=== PATIENT | male | born 1980 | race Hispanic/Latino ===

== ENCOUNTER 2017-04-25 00:27 | Emergency (ER) | payer OTHER ==
[~2017-04-25] VITALS: Ht 162.6 cm; Wt 108.9 kg
[~2017-04-25 00:27] MED LIST: PRINIVIL10 MG PO
[2017-04-25 01:28] LABS: BASOPHILS % 0.2 % (0.0-1.0); EOSINOPHILS # (AUTO) 0.3 (0.0-0.4); EOSINOPHILS % 2.9 % (0.0-6.0); HEMATOCRIT 42.5 % (38.2-49.6); HEMOGLOBIN 14.5 g/dL (14.0-18.0); LYMPHOCYTES # (AUTO) 3.5 (1.0-3.2); LYMPHOCYTES % 39.6 % (18.0-39.1); MEAN CORPUSCULAR HEMOGLOBIN 31.1 pg (28-32); MEAN CORPUSCULAR HGB CONC 34.1 g/dL (31-35); MEAN CORPUSCULAR VOLUME 91.2 fL (81-99); MONOCYTES # (AUTO) 0.7 (0.2-0.8); MONOCYTES % 7.5 % (4.4-11.3); NEUTROPHILS # (AUTO) 4.4 (2.1-6.9); NEUTROPHILS % 49.6 % (38.7-80.0); PLATELET COUNT 235 x10e3/uL (140-360); RED BLOOD COUNT 4.66 x10e6/uL (4.3-5.7); RED CELL DISTRIBUTION WIDTH 13.2 % (11.7-14.4)
[2017-04-25 01:48] LABS: ALANINE AMINOTRANSFERASE 28 IU/L (0-55); ALBUMIN 3.9 g/dL (3.5-5.0); ALKALINE PHOSPHATASE 129 IU/L (40-150); ANION GAP 12.1 mmol/L (8-16); BLOOD UREA NITROGEN 13 mg/dL (7-26); BUN/CREATININE RATIO 15 (6-25); CALCIUM 9.1 mg/dL (8.4-10.2); CARBON DIOXIDE 25 mmol/L (22-29); CHLORIDE 106 mmol/L (98-107); CREATINE KINASE 68 IU/L (30-200); CREATININE, SERUM 0.88 mg/dL (0.72-1.25); EST GLOMERULAR FILTRATION RATE > 60 ML/MIN (60-); GLUCOSE 132 mg/dL (74-118); POTASSIUM 4.1 mmol/L (3.5-5.1); SODIUM 139 mmol/L (136-145)
--- NOTE | 2017-04-25 02:10 | Diagnostic Imaging Report ---
CHEST SINGLE (PORTABLE), 04/25/2017 12:57 AM Technique: CHEST SINGLE (PORTABLE) Comparison: None available. Clinical history: Chest pain Findings: See Impression Impression: 1. Mildly enlarged cardiac silhouette, likely accentuated by portable technique. 2. No edema or consolidation. 3. No effusion or pneumothorax. Signed by: Dr Ary Montes MD on 04/25/2017 2:07 AM
[2017-04-25 04:11] LABS: CREATINE KINASE 61 IU/L (30-200)
[2017-04-25 04:26] VITALS: BP 154/89
== END 2017-04-25 04:27 | disposition home or self-care (01) ==
LOC: ER 00:27
DX: R07.89 Other chest pain (principal); R06.00 Dyspnea, unspecified; I10 Essential (primary) hypertension
CPT/HCPCS: 36415; 71045; 80053; 82550; 82553; 84484; 85025; 85379; 93005; 99284

== ENCOUNTER 2019-12-31 14:12 | Emergency (ER) | payer OTHER ==
[~2019-12-31] VITALS: Ht 162.6 cm; Wt 108.9 kg
[2019-12-31 15:04] LABS: BASOPHILS % 0.4 % (0.0-1.0); EOSINOPHILS # (AUTO) 0.2 (0.0-0.4); HEMATOCRIT 43.3 % (38.2-49.6); HEMOGLOBIN 14.8 g/dL (14.0-18.0); LYMPHOCYTES # (AUTO) 2.8 (1.0-3.2); LYMPHOCYTES % 28.1 % (18.0-39.1); MEAN CORPUSCULAR HEMOGLOBIN 30.6 pg (28-32); MEAN CORPUSCULAR HGB CONC 34.2 g/dL (31-35); MEAN CORPUSCULAR VOLUME 89.5 fL (81-99); MONOCYTES # (AUTO) 0.6 (0.2-0.8); MONOCYTES % 5.8 % (4.4-11.3); NEUTROPHILS # (AUTO) 6.2 (2.1-6.9); PLATELET COUNT 280 x10e3/uL (140-360); RED BLOOD COUNT 4.84 x10e6/uL (4.3-5.7); RED CELL DISTRIBUTION WIDTH 13.4 % (11.7-14.4)
[2019-12-31 15:12] LABS: BILIRUBIN,URINE NEGATIVE (NEGATIVE); CLARITY,URINE SL CLOUDY (CLEAR); COLOR,URINE YELLOW (YELLOW); KETONES,URINE TRACE (NEGATIVE); LEUKOCYTE ESTERASE ,URINE NEGATIVE (NEGATIVE); NITRITE,URINE NEGATIVE (NEGATIVE); PROTEIN,URINE DIPSTICK NEGATIVE (NEGATIVE); URINE UROBILINOGEN 0.2 mg/dL (0.2 - 1)
[2019-12-31 15:22] LABS: ALANINE AMINOTRANSFERASE 45 IU/L (0-55); ALBUMIN 3.8 g/dL (3.5-5.0); ALKALINE PHOSPHATASE 131 IU/L (40-150); ANION GAP 14.4 mmol/L (8-16); BLOOD UREA NITROGEN 12 mg/dL (7-26); BUN/CREATININE RATIO 12 (6-25); CALCIUM 9.2 mg/dL (8.4-10.2); CARBON DIOXIDE 25 mmol/L (22-29); CHLORIDE 103 mmol/L (98-107); CREATININE, SERUM 1.04 mg/dL (0.72-1.25); EST GLOMERULAR FILTRATION RATE > 60 ML/MIN (60-); GLUCOSE 233 mg/dL (74-118); POTASSIUM 3.4 mmol/L (3.5-5.1); SODIUM 139 mmol/L (136-145)
[2019-12-31 15:28] LABS: BACTERIA,URINE FEW /HPF; MUCUS,URINE MODERATE (RARE); RBC,URINE 0-5 /HPF (0-5)
--- NOTE | 2019-12-31 17:20 | Diagnostic Imaging Report ---
EXAM: CT Abdomen and Pelvis WITH contrast INDICATION: Flank pain concerning for obstructive uropathy COMPARISON: None. TECHNIQUE: Abdomen and pelvis were scanned utilizing a multidetector helical scanner from the lung base to the pubic symphysis after administration of IV contrast. Coronal and sagittal reformations were obtained. Routine protocol was performed. Scan was performed when during portal venous phase. IV CONTRAST: 100 mL of Isovue 370 ORAL CONTRAST: None COMPLICATIONS: None RADIATION DOSE: Total DLP: 888 mGy*cm Estimated effective dose: (DLP x 0.015 x size factor) mSv CTDIvol has been reviewed. It is below the limits set by the Radiation Protocol Committee (RPC). Dose modulation, iterative reconstruction, and/or weight based adjustment of the mA/kV was utilized to reduce the radiation dose to as low as reasonably achievable. FINDINGS: LINES and TUBES: None. LOWER THORAX: Unremarkable HEPATOBILIARY: The liver is diffuse hypodense compared to the spleen, consistent with diffuse hepatic diffuse hepatic steatosis. No focal hepatic lesions. No biliary ductal dilation. GALLBLADDER: No radio-opaque stones or sludge. No wall thickening. SPLEEN: No splenomegaly. PANCREAS: No focal masses or ductal dilatation. ADRENALS: No adrenal nodules KIDNEYS/URETERS: Kidneys enhance symmetrically. No hydronephrosis. No cystic or solid mass lesions. No stones. GI TRACT: No abnormal distention, wall thickening, or evidence of bowel obstruction. Appendix is normal. PELVIC ORGANS/BLADDER: Unremarkable. LYMPH NODES: No lymphadenopathy. VESSELS: Unremarkable. PERITONEUM / RETROPERITONEUM: No free air or fluid. BONES: Unremarkable. SOFT TISSUES: Unremarkable. IMPRESSION: 1. No obstructive renal or ureteral stones. No acute abdominopelvic abnormality identified. 2. Hepatic steatosis. Signed by: Shyla Matamoros MD on 12/31/2019 5:17 PM
[2019-12-31] MEDS ORDERED: SODIUM CHLORIDE 0.9% 1000ML 1,000 ML IV STA (17:25)
[2019-12-31] MEDS ORDERED: KETOROLAC TROMETHAMINE 30 MG/ML VIAL IV STA (17:25)
[2019-12-31] MEDS ORDERED: CLONIDINE HCL 0.2 MG TAB PO ONE (18:00)
[2019-12-31] MEDS ORDERED: HYDROCHLOROTHIA25 MG PO (18:38)
[2019-12-31] MEDS ORDERED: METOPROLOL TARTRATE INJ 1 MG/ML VIAL IV ONE (18:45)
[2019-12-31] MEDS ORDERED: IOPAMIDOL 370 MG/ML 200 ML INFUS..BTL INJ ONE (19:05)
[2019-12-31] MEDS ORDERED: SODIUM CHLORIDE 0.9% 50ML 50 ML ONE (19:05)
--- OUTSIDE RECORDS SUMMARY | 2020-01-13 16:07 | XMS REPORT | Continuity of Care Document ---
Author Author [facility] Organization [facility] Address [address] [place] [address] [address] [place] [address] Phone Unavailable Care Team Providers Care Dust Box Tender Name Role Phone PORFIRIO ESTEVEZ DO PCP Charlie THORNE Attphys Unavailable Louie CAO Attphys Unavailable Payers Payer Name Policy Type Policy Number Effective Date Expiration Date Charlie Alcaraz o [id number] 2013 00:00:00 [facility] Problems Condition Name Condition Details Condition Category Status Onset Date Resolution Date Last Treatment Date Treating Clinician Comments Source Calculus of kidney Kidney stone Problem Active [facility] Allergies, Adverse Reactions, Alerts Allergy Name Allergy Type Status Severity Reaction(s) Onset Date Inacti ve Date Treating Clinician Comments Source Tamsulosin Allergy to Substance Active Moderate ANXIETY ITCHING 2014-04-23 00:00:00 [facility] Medications Ordered Medication Name Filled Medication Name Start Date Stop Da te Current Medication? Ordering Clinician Indication Dosage Frequency Signature (SIG) Comments Components Source Lisinopril (Prinivil) 10 Mg Tablet Lisinopril (Prinivil) 10 Mg Tablet Yes 10 Daily [facility] Procedures This patient has no known procedures. Encounters Start Date/Time End Date/Time Encounter Type Admission Type [facility] Care Department Encounter ID Source 2017-04-25 00:27:00 2017-04-25 04:27:00 Departed Emergency Room ER DEBORA CAO [facility] [id number] [facility] Results Test Description Test Time Test Comments Results Result Comments Source CT ABDOMEN/PELVIS W 2019-12-31 17:12:00 [facility] : 1980 Sex: M [facility] [address] [address] Patient Name: BEATRIZ CHOW JR MR #: [id number] : 1980 Age/Sex: 39/M Req #: [id number] Adm Physician: Ordered by: BAKARI THORNE DO Report #: [id number] Location: ER Room/Bed: Procedure: [id number] CT/CT ABDOMEN/PELVIS W Exam Date: 12/31/19 Exam Time: 1640 REPORT STATUS: Signed EXAM: CT Abdomen and Pelvis WITH contra st INDICATION: Flank pain concerning for obstructive uropathy COMPARISON: None. TECHNIQUE: Abdomen and pelvis were scanned utilizing a multidetector helical scanner from the lung base to the pubic symphysis after administration of IV contrast. Coronal and sagittal reformations were obtained. Routine protocol was performed. Scan was performed when during portal venous phase. IV CONTRAST: 100 mL of Isovue 370 ORAL CONTRAST: None COMPLICATIONS: None RADIATION DOSE: Total DLP: 888 mGy*cm Estimated effective dose: (DLP x 0.015 x size factor) mSv CTDIvol has been reviewed. It is below the limits set by the Radiation Protocol Committee (RPC). Dose modulation, iterative reconstruction, and/or weight based adjustment of the mA/kV was utilized to reduce the radiation dose to as low as reasonably achievable. FINDINGS: LINES and TUBES: None. LOWER THORAX: Unremarkable HEPATOBILIARY: The liver is diffuse hypodense compared to the spleen, consistent with diffuse hepatic diffuse hepatic steatosis. No focal hepatic lesions. No biliary ductal dilation. GALLBLADDER: No radio-opaque stones or sludge. No wall thickening. SPLEEN: No splenomegaly. PANCREAS: No focal masses or ductal dilatation. ADRENALS: No adrenal nodules KIDNEYS/URETERS: Kidneys enhance symmetrically. No hydronephrosis. No cystic or solid mass lesions. No stones. GI TRACT: No abnormal distention, wall thickening, or evidence of bowel obstruction. Appendix is normal. PELVIC ORGANS/BLADDER: Unremarkable. LYMPH NODES: No lymphadenopathy. VESSELS: Unremarkable. PERITONEUM / RETROPERITONEUM: No free air or fluid. BONES: Unremarkable. SOFT TISSUES: Unremarkable. IMPRESSION: 1. No obstructive renal or ureteral stones. No acute abdominopelvic abnormality identified. 2. Hepatic steatosis. Signed by: Yen Hernandez MD on 12/31/2019 5:17 PM Dictated By: YEN HERNANDEZ MD 16 Transcribed By: BERNA on 12/31/191716 COPY TO: BAKARI THORNE DO Creatine Kinase MB 2017-04-25 04:19:00 Test Item Creatine Kinase MB (test code = 53926-6) 0.60 0-5.0 [facility] HospitalTroponin [id number] 04:19:00* Test Item Value Reference Range Interpretation Comments Troponin I (test code = 98507-7) -0.01 0.0-0.78 [facility] HospitalCreatine [id number] 04:13:00* Test Item Value Reference Range Interpretation Comments Creatine Kinase (test code = 2157-6) 61 30-200 [facility] Cnnay0690-69-74 01:49:00* Test Item Value Reference Range Interpretation Comments Sodium Level (test code = 2951-2) 139 136-145 [facility] HospitalPotassium Ysgtm2885-15-54 01:49:00* Test Item Value Reference Range Interpretation Comments Potassium Level (test code = 2823-3) 4.1 3.5-5.1 [facility] HospitalChloride [id number] 01:49:00* Test Item Value Reference Range Interpretation Comments Chloride Level (test code = 2075-0) 106 98-107 [facility] HospitalCarbon Dioxide Tdvbo1947-98-91 01:49:00* Test Item Value Reference Range Interpretation Comments Carbon Dioxide Level (test code = 2028-9) 25 22-29 [facility] HospitalAnion Ytn3422-82-46 01:49:00* Test Item Value Reference Range Interpretation Comments Anion Gap (test code = 98756-5) 12.1 8-16 [facility] HospitalBlood Urea Ljufwxvu3522-46-06 01:49:00* Test Item Value Reference Range Interpretation Comments Blood Urea Nitrogen (test code = 3094-0) 13 7- [facility] HospitalCreatinine2018-02-16 01:49:00* Test Item Value Reference Range Interpretation Comments Creatinine (test code = 2160-0) 0.88 0.72-1.25 [facility] HospitalBUN/Creatinine Ucnyx2507-86-53 01:49:00* Test Item Value Reference Range Interpretation Comments BUN/Creatinine Ratio (test code = 3097-3) 15 6-25 [facility] HospitalEstimat Glomerular Filtration Rate 2017-04-25 01:49:00* Test Item Value Reference Range Interpretation Comments Estimat Glomerular Filtration Rate (test code = 20001-5) 60- >60 Ranges were taken from the National Kidney Disease Education Program and the [employer] literature.Reference ranges:60 or greater: Kcgmnz80-16 ( for 3 consecutive months): Chronic kidney disease 15 or less: Kidney failureSouth [facility] Spine & Surgical HospitalGlucose Gmdch3088-43-52 01:49:00* Test Item Value Reference Range Interpretation Comments Glucose Level (test code = CWR7275) 132 74-118 H [facility] HospitalCalcium Mrmax2870-76-39 01:49:00* Test Item Value Reference Range Interpretation Comments Calcium Level (test code = 66477-4) 9.1 8.4-10.2 [facility] HospitalTotal Qamudxjlu4841-70-88 01:49:00* Test Item Value Reference Range Interpretation Comments Total Bilirubin (test code = 1975-2) 0.6 0.2-1.2 [facility] HospitalAspartate Amino Transf (AST/SGOT) 2017-04-25 01:49:00* Test Item Value Reference Range Interpretation Comments Aspartate Amino Transf (AST/SGOT) (test code = Aspartate Amino Transf (AST/SGOT)) 16 5-34 [facility] HospitalAlanine Aminotransferase (ALT/SGPT) 2017-04-25 01:49:00* Test Item Value Reference Range Interpretation Comments Alanine Aminotransferase (ALT/SGPT) (test code = 1742-6) 28 0-55 [facility] HospitalTotal Jokxniy6938-33-22 01:49:00* Test Item Value Reference Range Interpretation Comments Total Protein (test code = 2885-2) 7.7 6.5-8.1 [facility] HospitalAlbumin2018-02-16 01:49:00* Test Item Value Reference Range Interpretation Comments Albumin (test code = 1751-7) 3.9 3.5-5.0 [facility] HospitalGlobulin2018-02-16 01:49:00* Test Item Value Reference Range Interpretation Comments Globulin (test code = 86892-2) 3.8 2.3-3.5 H [facility] HospitalAlbumin/Globulin Zvelf2587-59-25 01:49:00 * Test Item Value Reference Range Interpretation Comments Albumin/Globulin Ratio (test code = 1759-0) 1.0 0.8-2.0 [facility] HospitalAlkaline Bifqbgbxmrz5825-73-53 01:49:00* Test Item Value Reference Range Interpretation Comments Alkaline Phosphatase (test code = 6768-6) 129 40-150 [facility] HospitalD-Dimer Quantitative (PE/DVT)2017-04-25 01:42:00* Test Item Value Reference Range Interpretation Comments D-Dimer Quantitative (PE/DVT) (test code = 53720-0) 0.24 0. 00-0.45 [facility] HospitalWhite Blood Frdbl4685-43-86 01:30:00* Test Item Value Reference Range Interpretation Comments White Blood Count (test code = 6690-2) 8.89 4.8-10.8 [facility] HospitalRed Blood Dvbqq8623-41-56 01:30:00* Test Item Value Reference Range Interpretation Comments Red Blood Count (test code = 789-8) 4.66 4.3-5.7 [facility] HospitalHemoglobin2018-02-16 01:30:00* Test Item Value Reference Range Interpretation Comments Hemoglobin (test code = 21623-0) 14.5 14.0-18.0 [facility] HospitalHematocrit2018-02-16 01:30:00* Test Item Value Reference Range Interpretation Comments Hematocrit (test code = 4544-3) 42.5 38.2-49.6 [facility] HospitalMean Corpuscular Jmxqji6419-10-32 01:30:00* Test Item Value Reference Range Interpretation Comments Mean Corpuscular Volume (test code = 787-2) 91.2 81-99 [facility] HospitalMean Corpuscular Uljigfjdbf8710-81-39 01:30:00* Test Item Value Reference Range Interpretation Comments Mean Corpuscular Hemoglobin (test code = 785-6) 31.1 28-32 [facility] HospitalMean Corpuscular Hemoglobin Concent 2017-04-25 01:30:00* Test Item Value Reference Range Interpretation Comments Mean Corpuscular Hemoglobin Concent (test code = 786-4) 34.1 31-35 [facility] HospitalRed Cell Distribution Anmvw4640-18-41 01:30:00* Test Item Value Reference Range Interpretation Comments Red Cell Distribution Width (test code = 42044-4) 13.2 11.7 -14.4 [facility] HospitalPlatelet Euqul8106-68-86 01:30:00* Test Item Value Reference Range Interpretation Comments Platelet Count (test code = 777-3) 235 140-360 [facility] HospitalNeutrophils (%) (Auto)2017-04-25 01:30:00 * Test Item Value Reference Range Interpretation Comments Neutrophils (%) (Auto) (test code = 91481-3) 49.6 38.7-80.0 [facility] HospitalLymphocytes (%) (Auto)2017-04-25 01:30:00 * Test Item Value Reference Range Interpretation Comments Lymphocytes (%) (Auto) (test code = 736-9) 39.6 18.0-39.1 H [facility] HospitalMonocytes (%) (Auto)2017-04-25 01:30:00* Test Item Value Reference Range Interpretation Comments Monocytes (%) (Auto) (test code = 5905-5) 7.5 4.4-11.3 [facility] HospitalEosinophils (%) (Auto)2017-04-25 01:30:00 * Test Item Value Reference Range Interpretation Comments Eosinophils (%) (Auto) (test code = 713-8) 2.9 0.0-6.0 [facility] HospitalBasophils (%) (Auto)2017-04-25 01:30:00* Test Item Value Reference Range Interpretation Comments Basophils (%) (Auto) (test code = 706-2) 0.2 0.0-1.0 [facility] HospitalIM GRANULOCYTES %2017-04-25 01:30:00* Test Item Value Reference Range Interpretation Comments IM GRANULOCYTES % (test code = IM GRANULOCYTES %) 0.2 0.0- 1.0 [facility] HospitalNeutrophils # (Auto)2017-04-25 01:30:00* Test Item Value Reference Range Interpretation Comments Neutrophils # (Auto) (test code = 751-8) 4.4 2.1-6.9 [facility] HospitalLymphocytes # (Auto)2017-04-25 01:30:00* Test Item Value Reference Range Interpretation Comments Lymphocytes # (Auto) (test code = 26712-7) 3.5 1.0-3.2 H [facility] HospitalMonocytes # (Auto)2017-04-25 01:30:00* Test Item Value Reference Range Interpretation Comments Monocytes # (Auto) (test code = 742-7) 0.7 0.2-0.8 [facility] HospitalEosinophils # (Auto)2017-04-25 01:30:00* Test Item Value Reference Range Interpretation Comments Eosinophils # (Auto) (test code = 711-2) 0.3 0.0-0.4 [facility] HospitalBasophils # (Auto)2017-04-25 01:30:00* Test Item Value Reference Range Interpretation Comments Basophils # (Auto) (test code = 704-7) 0.0 0.0-0.1 [facility] HospitalAbsolute Immature Granulocyte (auto 2017-04-25 01:30:00* Test Item Value Reference Range Interpretation Comments Absolute Immature Granulocyte (auto (mat t code = Absolute Immature Granulocyte (auto) 0.02 0-0.1 [facility] HospitalCHEST SINGLE (PORTABLE) [place] [address] Patient Name: BEATRIZ CHOW JR MR #: [id number] : 1980 Age/Sex: 36/M Req #: [id number] Adm Physician: Ordered by: DEBORA CAO MD Report #: [id number] Location: ER Room/Bed: Procedure: [id number] DX/CHEST SINGLE (P ORTABLE) Exam Date: Exam Time: REPORT STATUS : Signed CHEST SINGLE (PORTABLE), 04/25/2017 12:57 AM Technique: CHEST SI NGLE (PORTABLE) Comparison: None available. Clinical history: Chest pain Findings: See Impression Impression: 1. Mildly enlarged cardiac silho uette, likely accentuated by portable technique. 2. No edema or consolidatio n. 3. No effusion or pneumothorax. Signed by: Dr Gabriel Montes MD on 04/10 2:07 AM Dictated By: GABRIEL MONTES MD 6 Transcribed By: BERNA on 04/25/17206 COPY TO: DEBORA CAO MD
--- NOTE | 2020-01-20 03:53 | Emergency Department Note ---
History of Present Illnes History of Present Illness Chief Complaint: Abdominal Complaints History of Present Illness This is a 39 year old male arrived to the ED with right flank and right lower quadrant abdominal pain for several days . PATIENT IN FROM HOME WITH COMPLAINTS OF LOWER ABDOMINAL PAIN AND RIGHT FLANK PAIN SINCE LAST NIGHT; STATES PAIN COMES AND GOES, RATES PAIN 3/10 AT THIS TIME; DENIES ANY BURNING OR PAIN WITH URINATION, DENIES NAUSEA OR VOMITING, DENIES DIARRHEA Historian: Patient Arrival Mode: Car Onset (how long ago): day(s) Radiation: Reports abdomen, Reports flank Severity: mild Onset quality: sudden Duration (how long): day(s) Timing of current episode: intermittent Progression: partially resolved Context: Denies recent illness, Denies recent surgery Relieving factors: none Exacerbating factors: none Past Medical/Family History Physician Review I have reviewed the patient's past medical and family history. Any updates have been documented here. Past Medical History Recent Fever: No Clinical Suspicion of Infectio: No New/Unexplained Change in Ment: No Past Medical History: Hypertension Past Surgical History: None Social History Smoking Cessation: Never Smoker Counseling Performed: No Alcohol Use: Occasional Any Illegal Drug Use: No Other Last Tetanus: UTD Any Pre-Existing Lines (PICC,: No Review of Systems Review of Systems Constitutional: Reports no symptoms EENTM: Reports no symptoms Cardiovascular: Reports no symptoms Respiratory: Reports no symptoms Gastrointestinal: Reports as per HPI, Reports abdominal pain Genitourinary: Reports as per HPI, Reports pain Musculoskeletal: Reports no symptoms Integumentary: Reports no symptoms Neurological: Reports no symptoms Psychological: Reports no symptoms Endocrine: Reports no symptoms Hematological/Lymphatic: Reports no symptoms Physical Exam Related Data Allergies: Coded Allergies: tamsulosin (Verified Allergy, Intermediate, ANXIETY ITCHING, 12/31/19) Triage Vital Signs Vital Signs Date Time Temp Pulse Resp B/P (MAP) Pulse Ox O2 Delivery O2 Flow Rate FiO2 12/31/19 14:41 98.1 83 20 183/118 98 Room Air Vital signs reviewed: Yes Physical Exam CONSTITUTIONAL Constitutional: Present well-developed, Present obese HENT HENT: Present normocephalic, Present atraumatic, Present oropharynx clear/moist, Present nose normal HENT L/R: Present left ext ear normal, Present right ext ear normal EYES Eyes: Reports PERRL, Reports conjunctivae normal NECK Neck: Present ROM normal PULMONARY Pulmonary: Present effort normal, Present breath sounds normal CARDIOVASCULAR Cardiovascular: Present regular rhythm, Present heart sounds normal, Present capillary refill normal, Present normal rate GASTROINTESTINAL Abdominal: Present soft, Present bowel sounds normal, Present tender GENITOURINARY Genitourinary: Present exam deferred SKIN Skin: Present warm, Present dry MUSCULOSKELETAL Musculoskeletal: Present ROM normal NEUROLOGICAL Neurological: Present alert, Present oriented x 3, Present no gross motor or sensory deficits PSYCHOLOGICAL Psychological: Present mood/affect normal, Present judgement normal Results Laboratory Result Diagram: 12/31/19 1450 12/31/19 145 Lab results reviewed: Yes Imaging Imaging results reviewed: Yes Impressions IMPRESSION: 1. No obstructive renal or ureteral stones. No acute abdominopelvic abnormality identified. 2. Hepatic steatosis. Signed by: Shyla Matamoros MD on 12/31/2019 5:17 PM Assessment & Plan Medical Decision Making MDM This patient presents with abdominal pain of unclear etiology. A CT scan was performed to evaluate for potential causes of the abdominal pain, however, neither the clinical exam nor the CT has identified an emergent etiology for the abdominal pain. Specifically, given the benign exam, the laboratory studies, and unremarkable CT, I have a very low suspicion for appendicitis, ischemic bowel, bowel perforation, or any other life threatening disease. I have discussed with the patient the level of uncertainty with undifferentiated abdominal pain and clearly explained the need to follow-up as noted on the discharge instructions, or return to the Emergency Department immediately if the pain worsens, develops fever, persistent and uncontrollable vomiting, or for any new symptoms or concerns. Reassessment Reassessment On repeat examination prior to discharge, the patient has a soft abdomen with no peritoneal findings. The patient was able to tolerate oral intake. The patient was advised that even though there is no evidence of a surgical emergency at this time, sometimes this is not visible on CT abdomen and pelvis or in the labs early in a disease course and that if there is additional pain they are to return for repeat evaluation. The patient stated understanding of this, has decisional making capacity and is discharged in stable condition. The patient was instructed to return to the emergency department for re-evaluation in 8-12 hours and sooner if they feel worse in any way. Assessment & Plan Final Impression: (1) Kidney stone Depart Disposition: HOME, SELF-CARE Last Vital Signs Date Time Temp Pulse Resp B/P (MAP) Pulse Ox O2 Delivery O2 Flow Rate FiO2 12/31/19 18:42 70 207/117 12/31/19 18:07 16 100 12/31/19 14:41 98.1 Room Air Home Meds Active Scripts Hydrochlorothiazide (HYDROCHLOROTHIAZIDE) 25 Mg Tablet, 25 MG PO DAILY, #30 TAB Prov:BAKARI THORNE DO 12/31/19 Reported Medications Lisinopril (PRINIVIL) 10 Mg Tablet, 10 MG PO DAILY 11/17/13 BAKARI THORNE DO Jan 20, 2020 03:53
== END 2019-12-31 19:09 | disposition home or self-care (01) ==
LOC: ER 15:37
DX: N20.0 Calculus of kidney (principal); M54.5 Low back pain; R10.31 Right lower quadrant pain; I10 Essential (primary) hypertension
CPT/HCPCS: 36415; 74177; 80053; 81001; 85025; 99284; J1885; J7030; Q9967

== ENCOUNTER 2023-10-26 15:58 | Emergency (ER) | payer OTHER ==
[~2023-10-26] VITALS: Ht 162.6 cm; Wt 113.4 kg
[~2023-10-26 15:58] MED LIST changes: +HYDROCHLOROTHIA25 MG PO
[2023-10-26 16:04] VITALS: TEMP 99.6
[2023-10-26] MEDS ORDERED: SODIUM CHLORIDE FLUSH 10 ML SYR IV PRN (16:15)
[2023-10-26 16:33] LABS: BASOPHILS % 0.2 % (0.0-1.0); HEMATOCRIT 48.7 % (38.2-49.6); HEMOGLOBIN 16.4 g/dL (14.0-18.0); LYMPHOCYTES # (AUTO) 1.9 (1.0-3.2); LYMPHOCYTES % 21.1 % (18.0-39.1); MEAN CORPUSCULAR HEMOGLOBIN 30.9 pg (28-32); MEAN CORPUSCULAR HGB CONC 33.7 g/dL (31-35); MEAN CORPUSCULAR VOLUME 91.7 fL (81-99); MONOCYTES # (AUTO) 0.2 (0.2-0.8); MONOCYTES % 2.4 % (4.4-11.3); NEUTROPHILS # (AUTO) 6.9 (2.1-6.9); NEUTROPHILS % 75.6 % (38.7-80.0); PLATELET COUNT 277 x10e3/uL (140-360); RED BLOOD COUNT 5.31 x10e6/uL (4.3-5.7); RED CELL DISTRIBUTION WIDTH 13.7 % (11.7-14.4); WHITE BLOOD COUNT 9.07 x10e3/uL (4.8-10.8)
[2023-10-26] MEDS: ASPIRIN 81 MG CHEW TAB PO ONE (16:34)
[2023-10-26] MEDS: SODIUM CHLORIDE 0.9% 1000ML 1,000 ML IV ONE ×2 (16:35→17:27)
[2023-10-26 16:55] LABS: ALANINE AMINOTRANSFERASE 31 IU/L (0-55); ALBUMIN 4.4 g/dL (3.5-5.0); ALKALINE PHOSPHATASE 128 IU/L (40-150); ANION GAP 18.9 mmol/L (8-16); BILIRUBIN,TOTAL 0.5 mg/dL (0.2-1.2); BLOOD UREA NITROGEN 12 mg/dL (7-26); BUN/CREATININE RATIO 11 (6-25); CALCIUM 9.9 mg/dL (8.4-10.2); CARBON DIOXIDE 20 mmol/L (22-29); CHLORIDE 99 mmol/L (98-107); EST GLOMERULAR FILTRATION RATE 85 ML/MIN (>=60); GLUCOSE 293 mg/dL (74-118); POTASSIUM 3.9 mmol/L (3.5-5.1); SODIUM 134 mmol/L (136-145); TOTAL PROTEIN 8.7 g/dL (6.5-8.1)
[2023-10-26 17:09] LABS: TROPONIN I < 0.05 ng/mL (0.0-0.40)
[2023-10-26] MEDS: ACETAMINOPHEN 325 MG TAB PO ONE (17:27)
[2023-10-26 18:03] VITALS: PULSE 97; RESP 18
[2023-10-26 18:53] VITALS: BP 141/79; PULSE 95; RESP 16; TEMP 99; O2SAT 100
== END 2023-10-26 18:54 | disposition home or self-care (01) ==
LOC: ER 16:12
DX: R50.9 Fever, unspecified (principal); U07.1 COVID-19; E11.65 Type 2 diabetes mellitus with hyperglycemia; I10 Essential (primary) hypertension; E78.5 Hyperlipidemia, unspecified
CPT/HCPCS: 36415; 71046; 80053; 83880; 84484; 85025; 87400; 93005; 94760; 99283; J7030; U0002